=== PATIENT | male | born 1965 | race Caucasian/White ===

== ENCOUNTER 2019-01-07 07:06 | Emergency (ER) | payer OTHER ==
[~2019-01-07] VITALS: Wt 72.0 kg
[2019-01-07 07:13] VITALS: BP 134/67; PULSE 84; RESP 18
[2019-01-07] MEDS ORDERED: ONDANSETRON (ODT) 4 MG TAB ODT STA (07:44)
[2019-01-07] MEDS ORDERED: HYDROCODONE/APAP (5/325) TAB PO ONE (08:00)
[2019-01-07] MEDS ORDERED: NAPR-985 PO (08:25)
[2019-01-07] MEDS ORDERED: HYDR-4011 PO (08:25)
[2019-01-07] MEDS ORDERED: ONDA4TAB14 PO (08:25)
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
== END 2019-01-07 08:47 | disposition home or self-care (01) ==
LOC: FTE 07:06
DX: M25.512 Pain in left shoulder (principal); I10 Essential (primary) hypertension; E11.9 Type 2 diabetes mellitus without complications; M25.562 Pain in left knee; M54.9 Dorsalgia, unspecified; Z85.47 Personal history of malignant neoplasm of testis
CPT/HCPCS: 71045; 73562; Z7502; Z7610